=== PATIENT | female | born 1945 | race Caucasian/White ===

== ENCOUNTER 2023-02-16 15:08 | Emergency (ER) | payer MEDICARE, BC, SELFPAY ==
[2023-02-16] VITALS (11 sets, daily range): BP systolic 138; BP diastolic 78; PULSE 67–90; RESP 13–20; TEMP 37.1; O2SAT 94–98; BMI 28.3
--- NOTE | 2023-02-16 15:22 | ECG_ITS ---
The [facility] Test Date: 2023-02-16 Pat Name: DEBRA LAWSON Department: Room: - Gender: Female Entry Level Staff Accountant: : 1945 Requested By: [id number] Order Number: [id number] Reading MD: SHADE PEREZ Measurements Intervals [place] Rate: 81 P: 50 MT: 144 QRS: 36 QRSD: 84 T: 57 QT: 348 QTc: 385 Interpretive Statements 1100 Sinus rhythm 3433 Septal myocardial infarction, probably old 9150 abnormal ECG No previous ECG available for comparison Electronically Signed On 02-16-2023 18:09:33 EDT by SHADE PEREZ
--- NOTE | 2023-02-16 15:22 | CT_ITS ---
The [address] [address] Patient Name: DEBRA LAWSON MRN: [id number] date: 1945 Sex: F Assigned Patient Location: ED.MAIN Current Patient Location: Accession/Order Number: [id number] Exam Date: 02/16/2023 15:58 Report Date: 02/16/2023 16:23 At the request of: ROXANNE FINLEY Procedure: CT head/brain wo con EXAMINATION: CT head/brain wo con, 02/16/2023 3:58 PM EDT HISTORY: Dizziness COMPARISON: None. TECHNIQUE: CT scan of the head was performed without IV contrast. CT dose reduction technique was used, including Automated Exposure Control. FINDINGS: BRAIN PARENCHYMA/CSF SPACES: Ventricles are normal in size for age. There is no hemorrhage, mass effect or midline shift. Mild low attenuation in the white matter consistent with chronic microvascular ischemia. PARANASAL SINUSES: Clear. SKULL BASE AND CALVARIUM: Normal. EXTRACRANIAL SOFT TISSUES: Normal. CT/CT head/brain wo con IMPRESSION: No acute intracranial findings. Electronically authenticated by: HESHAM ALVARENGA Date: 02/16/2023 16:23
--- NOTE | 2023-02-16 15:22 | XR_ITS ---
The [address] [address] Patient Name: DEBRA LAWSON MRN: [id number] date: 1945 Sex: F Assigned Patient Location: ED.MAIN Current Patient Location: ER Accession/Order Number: [id number] Exam Date: 02/16/2023 15:58 Report Date: 02/16/2023 16:33 At the request of: ROXANNE FINLEY Procedure: XR chest 1V EXAM: XR chest 1V HISTORY: Dizziness COMPARISON: None. TECHNIQUE: Frontal view of the chest. FINDINGS: No focal consolidations or pleural effusions. Cardiomediastinal silhouette is unremarkable. Left shoulder arthroplasty. XR/XR chest 1V IMPRESSION: No acute disease. Electronically authenticated by: HESHAM ALVARENGA Date: 02/16/2023 16:33
--- NOTE | 2023-02-16 15:24 | ED_ITS ---
HPI - Dizziness General Chief Complaint: Dizziness Stated Complaint: DIZZINESS Time Seen by Provider: 02/16/23 15:12 Source: patient Mode of arrival: Wheelchair Limitations: no limitations History of Present Illness HPI Narrative: patient is a 77-year-old female who presents to the emergency department for the evaluation of dizziness that began while she was in the [employer] [place] through approximately two hours ago. Patient states that she was feeling off balance and nauseous with change in position. She went home and laid down, after one hour she was still having the same symptoms. She states when she is standing and walking, she seems to get her bearings but the change in position from lying to standing makes her symptoms worse. She denies headache, visual changes, peripheral paresthesias. She denies fevers, chills, chest pain, shortness of breath. No recent upper respiratory symptoms. She denies any flulike illness, vomiting, diarrhea, urinary symptoms. She has appointment tomorrow with her urologist to discuss her cystocele. Related Data Previous Rx's Medication Instructions Recorded meclizine 25 mg chewable tablet 25 mg PO QID PRN dizziness #12 tabs 02/16/23 (Antivert) nitrofurantoin 100 mg PO BID 7 days #14 caps 02/16/23 monohydrate/macrocrystals 100 mg capsule (Macrobid) ondansetron 4 mg disintegrating 4 mg PO Q6H PRN nausea and 02/16/23 tablet vomiting #12 tabs Allergies Allergy/AdvReac Type Severity Reaction Status Date / Time ciprofloxacin AdvReac Severe Nausea Verified 02/16/23 15:18 diclofenac AdvReac Severe increased Verified 02/16/23 15:18 liver enzymes Sulfa (Sulfonamide AdvReac Severe rectal Verified 02/16/23 15:18 Antibiotics) bleeding Review of Systems ROS Constitutional Denies: fever or chills Eyes Denies: change in vision Ears, nose, mouth, and throat Denies: throat pain Cardiovascular Denies: chest pain Respiratory Denies: shortness of breath or cough Gastrointestinal Reports: nausea; Denies: abdominal pain or vomiting Genitourinary Denies: painful urination Musculoskeletal Denies: back pain Integumentary/Breast Denies: rash Neurological Denies: headache Exam Narrative Exam Narrative: Gen.: Awake, alert, in no distress Head: Normocephalic, atraumatic ENT: Moist mucous membranes Respiratory: No respiratory distress, lungs clear bilaterally Cardio: Regular rate and rhythm Extremities: Moves extremities equally, no pedal edema Psych: Normal mood and affect Neuro: No focal neuro deficit, clear speech, moves all extremities equally Skin: Warm, dry, intact Constitutional Vital Signs, click to edit/add: Last Vital Signs Temp 98.7 F 02/16/23 15:12 Pulse 74 02/16/23 17:01 Resp 16 02/16/23 17:01 BP 138/78 H 02/16/23 15:12 Pulse Ox 95 02/16/23 17:01 O2 Del Method Room Air 02/16/23 15:52 Course Vital Signs Vital signs: Vital Signs Temperature 98.7 F 02/16/23 15:12 Pulse Rate 90 02/16/23 15:12 Respiratory Rate 20 02/16/23 15:12 Blood Pressure 138/78 H 02/16/23 15:12 Pulse Oximetry 94 L 02/16/23 15:12 Oxygen Delivery Method Room Air 02/16/23 15:12 Temperature 98.7 F 02/16/23 15:12 Pulse Rate 74 02/16/23 17:01 Respiratory Rate 16 02/16/23 17:01 Blood Pressure 138/78 H 02/16/23 15:12 Pulse Oximetry 95 02/16/23 17:01 Oxygen Delivery Method Room Air 02/16/23 15:52 MDM - Dizziness MDM Narrative Medical decision making narrative: patient treated with IV fluids, Antivert, Zofran. She has no complaints of pain in the Emergency Room, no complaints of profound dizziness or vomiting. She ambulated to the bathroom without difficulty using her cane which she uses at home regularly. CT of the brain, chest x-ray, lab studies within normal limits although the patient was found to have a urinary tract infection. she is resting comfortably on reevaluation in no acute distress. She is discharged home, 1st dose of Macrobid in the Emergency Room and prescribed Macrobid, Zofran, Antivert for home. She staates she has a history of resistance to cephalosporins for her urinary tract infection and will not take Cipro because of nausea. She states she has had good success with Macrobid in the past. Medical Records Attestation: I reviewed the patient's medical records. Lab Data Attestation: I reviewed the patient's lab results. Labs: Lab Results 02/16/23 02/16/23 Range/Units 15:26 16:18 WBC 6.0 (4.0-11.0) 10^3/uL RBC 4.49 (4.20-5.40) 10^6/uL Hgb 12.8 (12.0-16.0) g/dL Hct 38.2 (36.0-48.0) % MCV 85.1 (81.0-99.0) fL MCH 28.5 (26.7-34.0) pg MCHC 33.5 (29.9-35.2) g/dL RDW 13.0 (11.0-15.0) % Plt Count 175 (150-450) 10^3/uL MPV 9.7 (9.5-13.5) fL Seg Neuts % (Manual) 78.0 Lymphocytes % (Manual) 16.0 L (20.5-60.0) % Monocytes % (Manual) 6.0 (1.7-12.0) % Eosinophils % (Manual) 0.0 L (0.9-7.0) % Basophils % (Manual) 0.0 L (0.2-2.0) % Neutrophils # (Manual) 4.68 (1.4-6.5) 10^3/uL Lymphocytes # (Manual) 0.96 L (1.20-3.80) 10^3/uL Monocytes # (Manual) 0.36 (0.30-0.80) 10^3/uL Eosinophils # (Manual) 0.00 (0.00-0.70) 10^3/uL Basophils # (Manual) 0.00 (0.00-0.10) 10^3/uL Hypochromasia 1+ PT 10.1 (9.0-11.6) sec INR 0.95 Sodium 137 (136-145) mmol/L Potassium 3.8 (3.5-5.1) mmol/L Chloride 103 (98-107) mmol/L Carbon Dioxide 23.7 (21.0-32.0) mmol/L Anion Gap 14.1 BUN 25.0 H (7.0-18.0) mg/dL Creatinine 1.16 H (0.55-1.02) mg/dL Est GFR ( Amer) 55 L (>=60) Est GFR (Non-Af Amer) 45 L (>=60) BUN/Creatinine Ratio 21.6 Glucose 112 H (74-106) mg/dL Calcium 8.7 (8.5-10.1) mg/dL Total Bilirubin 0.3 (0.2-1.0) mg/dL AST 13 L (15-37) U/L ALT <6 L (14-59) U/L Alkaline Phosphatase 62 (46-116) U/L Troponin I High Sens 4.5 (4.0-51.3) pg/mL Total Protein 6.8 (6.4-8.2) g/dL Albumin 3.6 (3.4-5.0) g/dL Globulin 3.2 g/dL Albumin/Globulin Ratio 1.1 TSH 1.069 (0.358-3.740) uIU/mL Urine Color Dk. orange (YELLOW) Urine Clarity Sl cloudy (CLEAR) Urine pH 7.0 (5.0-9.0) Ur Specific [place] 1.020 (1.005-1.025) Urine Protein 30 A (NEG/TRACE) mg/dL Urine Glucose (UA) 100 A (NEGATIVE) mg/dL Urine Ketones Trace A (NEGATIVE) mg/dL Urine Occult Blood Negative (NEGATIVE) Urine Nitrite Positive A (NEGATIVE) Urine Bilirubin Negative (NEGATIVE) Urine Urobilinogen 2.0 A (0.2-1.0) EU/dL Ur Leukocyte Esterase Negative (NEGATIVE) Urine RBC 0-2 (0-2) #/HPF Urine WBC 2-5 A (NONE SEEN) #/HPF Ur Squamous Epith Cells Few A (NONE/RARE) #/LPF Ur Transition Epith Cell Rare A (NONE SEEN) #/LPF Urine Crystals Seen A (None Seen) #/HPF Amorphous Sediment Few Urine Bacteria Moderate A (NONE SEEN) #/HPF Urine Casts None seen (NONE SEEN) #/LPF Urine Mucus Trace A (NONE SEEN) Ur Culture Indicated? Yes Imaging Data Chest x-ray: Attestation: I have reviewed the pertinent imaging results. Radiologist's impression: Procedure: XR chest 1V EXAM: XR chest 1V HISTORY: Dizziness COMPARISON: None. TECHNIQUE: Frontal view of the chest. FINDINGS: No focal consolidations or pleural effusions. Cardiomediastinal silhouette is unremarkable. Left shoulder arthroplasty. IMPRESSION: No acute disease. Electronically authenticated by: HESHAM ALVARENGA Date: 02/16/2023 16:33 CT scan - head: Attestation: I have reviewed the pertinent imaging results. Radiologist's impression: Procedure: CT head/brain wo con EXAMINATION: CT head/brain wo con, 02/16/2023 3:58 PM EDT HISTORY: Dizziness COMPARISON: None. TECHNIQUE: CT scan of the head was performed without IV contrast. CT dose reduction technique was used, including Automated Exposure Control. FINDINGS: BRAIN PARENCHYMA/CSF SPACES: Ventricles are normal in size for age. There is no hemorrhage, mass effect or midline shift. Mild low attenuation in the white matter consistent with chronic microvascular ischemia. PARANASAL SINUSES: Clear. SKULL BASE AND CALVARIUM: Normal. EXTRACRANIAL SOFT TISSUES: Normal. IMPRESSION: No acute intracranial findings. Electronically authenticated by: HESHAM ALVARENGA Date: 02/16/2023 16:23 ECG Data Attestation: I personally reviewed and interpreted this ECG as follows: (normal sinus rhythm at a rate of eighty-one, no acute ST elevation or ectopy. EKG reviewed by attending physician) ECG interpretation date: 02/16/23 ECG interpretation time: 15:35 Discharge Plan Discharge Chief Complaint: Dizziness Clinical Impression: Dizziness, Acute UTI Patient Disposition: Home, Self-Care Time of Disposition Decision: 17:22 Condition: Good Prescriptions / Home Meds: New nitrofurantoin monohyd/m-cryst [Macrobid] 100 mg capsule 100 mg PO BID 7 Days Qty: 14 0RF Rx Instructions: must administer with a meal/food ondansetron 4 mg tablet,disintegrating 4 mg PO Q6H PRN (Reason: nausea and vomiting) Qty: 12 0RF meclizine [Antivert] 25 mg tablet,chewable 25 mg PO QID PRN (Reason: dizziness) Qty: 12 0RF Instructions: Urinary Tract Infection in Women (ED), Dizziness (ED) Stand Alone Forms: Portal Instructions Referrals: JACQUELINE PETERSON [Primary Care Provider] - 1 week
[2023-02-16 15:34] LABS: Hematocrit 38.2 % (36.0-48.0); Hemoglobin 12.8 g/dL (12.0-16.0); Mean Corpuscular HGB Conc 33.5 g/dL (29.9-35.2); Mean Corpuscular Hemoglobin 28.5 pg (26.7-34.0); Mean Corpuscular Volume 85.1 fL (81.0-99.0); Mean Platelet Volume 9.7 fL (9.5-13.5); Platelet Count 175 10^3/uL (150-450); Red Blood Count 4.49 10^6/uL (4.20-5.40)
[2023-02-16] MEDS: ONDANSETRON PF 4 MG/2 ML VIAL IV (15:39)
[2023-02-16] MEDS: 0.9 % SODIUM CHLORIDE 1,000 ML 1000 ML IV (15:39)
[2023-02-16] MEDS: MECLIZINE HCL 12.5 MG TABLET 25 MG PO (15:39)
[2023-02-16 15:49] LABS: INR 0.95; Prothrombin Time 10.1 sec (9.0-11.6)
[2023-02-16 15:59] LABS: Alanine Aminotransferase <6 U/L (14-59); Albumin Globulin Ratio 1.1; Albumin Level 3.6 g/dL (3.4-5.0); Alkaline Phosphatase 62 U/L (46-116); Anion Gap 14.1; Aspartate Amino Transferase 13 U/L (15-37); BUN Creatinine Ratio 21.6; Bilirubin Total 0.3 mg/dL (0.2-1.0); Calcium 8.7 mg/dL (8.5-10.1); Carbon Dioxide 23.7 mmol/L (21.0-32.0); Chloride 103 mmol/L (98-107); Estimated GFR (African America 55 (>=60); Estimated GFR (Non-African Ame 45 (>=60); Globulin 3.2 g/dL; Glucose 112 mg/dL (74-106); Potassium 3.8 mmol/L (3.5-5.1); Sodium 137 mmol/L (136-145); Thyroid Stimulating Hormone 1.069 uIU/mL (0.358-3.740); Total Protein 6.8 g/dL (6.4-8.2); Troponin I High Sensitivity 4.5 pg/mL (4.0-51.3)
[2023-02-16 16:11] LABS: Lymphocytes Absolute Manual 0.96 10^3/uL (1.20-3.80); Monocytes Absolute Manual 0.36 10^3/uL (0.30-0.80); Segmented Neut Absolute Manual 4.68 10^3/uL (1.4-6.5)
[2023-02-16 16:12] LABS: Hypochromasia 1+
[2023-02-16 16:30] LABS: Bilirubin Urine NEGATIVE (NEGATIVE); Blood Urine NEGATIVE (NEGATIVE); Clarity Urine SL CLOUDY (CLEAR); Color Urine DK. ORANGE (YELLOW); Glucose Urine UA 100 mg/dL (NEGATIVE); Ketones Urine TRACE mg/dL (NEGATIVE); Leukocyte Esterase Urine NEGATIVE (NEGATIVE); Nitrite Urine POSITIVE (NEGATIVE); Protein Urine 30 mg/dL (NEG/TRACE)
[2023-02-16 16:58] LABS: Urine Microscopic Indicated YES
[2023-02-16 17:11] LABS: Bacteria Urine MODERATE #/HPF (NONE SEEN); RBC Urine 0-2 #/HPF (0-2)
[2023-02-16 17:15] LABS: Amorphous Sediment Urine FEW; Cast Seen? NONE SEEN #/LPF (NONE SEEN); Crystals Seen? Seen #/HPF (None Seen); Mucus Urine TRACE (NONE SEEN); Squamous Epithelial Cell Urine FEW #/LPF (NONE/RARE); Transitional Epi Cells Urine RARE #/LPF (NONE SEEN)
[2023-02-16 17:17] LABS: Urine Culture Indicated YES
[2023-02-16] MEDS: NITROFURANTOIN MONOHYD/MAC-CRST 100 MG CAPSULE PO (17:32)
== END 2023-02-16 17:46 | disposition home or self-care (01) ==
PROVIDERS: Physician Assistant; Emergency Provider Emergency Medicine; PCP Family Medicine
DX: N39.0 Urinary tract infection, site not specified (principal); R42 Dizziness and giddiness
CPT/HCPCS: 36415; 70450; 71045; 80053; 81003; 81015; 84443; 84484; 85007; 85025; 85610; 87086; 93005; 96374; 99285